=== PATIENT | male | born 1985 | race Caucasian/White ===

== ENCOUNTER 2017-03-27 10:20 | Emergency (ER) | payer MEDICAID ==
[2017-03-27 10:37] VITALS: RESP 16; TEMP 98.4; O2SAT 97
[2017-03-27 10:46] VITALS: BP 117/59; PULSE 7
[2017-03-27 10:47] VITALS: BMI 25.7
--- NOTE | 2017-03-27 11:41 | ED PDOC ---
Lower Extremity Pain/Injury Time Seen by Provider: 03/27/17 10:48 Chief Complaint (Nursing): Lower Extremity Problem/Injury Chief Complaint (Provider): knee pain Additional Complaint(s): 32 yo male, no PMH, presents into ER with c/o rt. knee pain since Tuesday. states he stepped off the sidewalk wrong and felt pain and "twisted his knee." No pop or crack noted. as per pt. pain is worse with ambulation. No analgesics taken thus far. Past Medical History Reviewed: Historical Data, Nursing Documentation, Vital Signs Vital Signs: Last Vital Signs Temp 98.4 F 03/27/17 10:46 Pulse 7 L 03/27/17 10:46 Resp 16 03/27/17 10:46 BP 117/59 L 03/27/17 10:46 Pulse Ox 97 03/27/17 10:46 - Medical History PMH: No Chronic Diseases - Surgical History Surgical History: Appendectomy - Family History Family History: States: No Known Family Hx - Living Arrangements Living Arrangements: With Friends/Others - Social History Current smoker - smoking cessation education provided: No Alcohol: Social Drugs: Denies - Home Medications Home Medications: Ambulatory Orders Medication Instructions Recorded Ibuprofen [Motrin] 600 mg PO Q6 #20 tab 03/27/17 - Allergies Allergies/Adverse Reactions: Allergies Allergy/AdvReac Type Severity Reaction Status Date / Time No Known Allergies Allergy Verified 03/27/17 11:04 Review of Systems ROS Statement: Except As Marked, All Systems Reviewed And Found Negative Musculoskeletal: Positive for: Leg Pain Physical Exam - Reviewed Nursing Documentation Reviewed: Yes Vital Signs Reviewed: Yes - Physical Exam Appears: Positive for: Well, Non-toxic, No Acute Distress Head Exam: Positive for: ATRAUMATIC, NORMAL INSPECTION, NORMOCEPHALIC Skin: Positive for: Normal Color, Warm, DRY Eye Exam: Positive for: EOMI, Normal appearance, PERRL ENT: Positive for: Normal ENT Inspection Neck: Positive for: Normal, Painless ROM Cardiovascular/Chest: Positive for: Regular Rate, Rhythm Respiratory: Positive for: CNT, Normal Breath Sounds Gastrointestinal/Abdominal: Positive for: Normal Exam, Bowel Sounds, Soft Back: Positive for: Normal Inspection Extremity: Positive for: Normal ROM, Tenderness (over patella and medial and lateral aspects of knee), Swelling (mild suprapatellar infusion). Negative for : Deformity Neurologic/Psych: Positive for: Alert, Oriented - ECG O2 Sat by Pulse Oximetry: 97 Medical Decision Making Medical Decision Making: Medicated with Motrin PO XR: NAD, as read by FERNIE blanchard advised. Ortho referral administered Pt placed in knee immobilizer and instructed in crutch training Disposition - Clinical Impression Clinical Impression: Knee injury - Patient ED Disposition Is Patient to be Admitted: No - Disposition Referrals: Live Swain MD [Medical Doctor] - Disposition: Routine/Home Disposition Time: 11:15 Condition: STABLE Prescriptions: Ibuprofen [Motrin] 600 mg PO Q6 #20 tab Instructions: Knee Pain (ED), RICE Therapy (ED), Knee Immobilizer (ED) Forms: [employer] (Lux[place]ish) - POA Present On Arrival: Falls Or Trauma
--- NOTE | 2017-03-27 13:22 | RAD ---
PROCEDURE: Right Knee Radiographs. HISTORY: pain after fall COMPARISON: None. FINDINGS: BONES: Normal. No fracture. JOINTS: Normal. No osteoarthritis. JOINT EFFUSION: None. OTHER FINDINGS: None. IMPRESSION: Normal radiographs of the right knee.
== END 2017-03-27 13:17 | disposition home or self-care (01) ==
LOC: MERGE 10:20 → H.ER 10:20
DX: S89.91XA Unspecified injury of right lower leg, initial encounter (principal); X50.9XXA Other and unspecified overexertion or strenuous movements or postures, initial encounter; Y92.89 Other specified places as the place of occurrence of the external cause

== ENCOUNTER 2017-05-10 14:23 | Emergency (ER) | payer MEDICAID ==
[2017-05-10 14:23] VITALS: BMI 25.7
[2017-05-10 14:46] VITALS: BP 105/64; PULSE 74; RESP 18; O2SAT 100
--- NOTE | 2017-05-10 16:15 | ED PDOC ---
History of Present Illness History of Present Illness: Kevin Villarreal is a 32 year old male with a past medical history of chronic sinus issues, who is presenting to the ER with complaints of productive cough associated with mild nasal congestion, onset 1 week ago. Patient states that he has a sore throat, worse when coughing and has yellow and clear sputum. He reports that he took night cough medicine with mild relief, but feels like his symptoms are getting worse. Patient reports fatigue and malaise, but denies any hemoptysis, body aches, fevers, chills, chest pain, shortness of breath, and leg swelling. He also denies any sick contacts or recent travel. Patient offers no other medical complaints at this time. PMD: none provided HPI: Influenza Time Seen by Provider: 05/10/17 15:35 Chief Complaint: Cough, Cold, Congestion Chief Complaint (Provider): cough, congestion History Per: Patient Exam Limitations: no limitations Have you had recent travel within the past 21 days to any of: No Onset/Duration Of Symptoms: Days (x7) Symptoms include: sore throat, cough, nasal congestion. denies: fever, bodyaches, chest pain, difficulty breathing Sick Contacts (Context): None Past Medical History Reviewed: Historical Data, Nursing Documentation, Vital Signs Vital Signs: Last Vital Signs Temp 98.6 F 05/10/17 14:42 Pulse 74 05/10/17 14:42 Resp 18 05/10/17 14:42 BP 105/64 05/10/17 14:42 Pulse Ox 100 05/10/17 14:42 - Medical History PMH: Denies: Diabetes, Hepatitis, HIV, HTN, Seizures, Sexually Transmitted Disease Other PMH: chronic sinus issues - Surgical History Surgical History: Appendectomy - Family History Family History: States: No Known Family Hx - Social History Current smoker - smoking cessation education provided: No Alcohol: None Drugs: Denies - Home Medications Home Medications: Ambulatory Orders Medication Instructions Recorded Gabapentin [Neurontin] 300 mg PO TID #90 cap 12/21/16 traZODone [Desyrel] 100 mg PO HS #30 tab 12/21/16 Ibuprofen [Motrin] 600 mg PO Q6 #20 tab 03/27/17 Ibuprofen [Motrin Tab] 600 mg PO Q8 PRN #60 tab 05/10/17 Promethazine HCl/Codeine 10 ml PO Q6 PRN #120 ml 05/10/17 [Prometh-Codein 6.25-10 mg/5 ml] - Allergies Allergies/Adverse Reactions: Allergies Allergy/AdvReac Type Severity Reaction Status Date / Time No Known Allergies Allergy Verified 12/15/16 11:58 Review of Systems ROS Statement: Except As Marked, All Systems Reviewed And Found Negative Constitutional: Positive for: Malaise, Other ((+) fatigue, (-) body aches). Negative for: Fever, Chills ENT: Positive for: Nose Congestion (mild), Throat Pain Cardiovascular: Negative for: Chest Pain Respiratory: Positive for: Cough, Sputum (yellow and clear). Negative for: Shortness of Breath, Hemoptysis Musculoskeletal: Negative for: Other (leg swelling) Physical Exam - Reviewed Nursing Documentation Reviewed: Yes Vital Signs Reviewed: Yes - Physical Exam Appears: Positive for: No Acute Distress (tired appearing) Medical Decision Making Medical Decision Making: Time: 15:55 Impression: Cough Differentials (including but not limited to): Flu, Pneumonia, Bronchitis, Upper Respiratory Infection Initial Plan: --Chest X-Ray --Influenza A B Accession No. 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 TECHNIQUE: Chest PA and lateral FINDINGS: LUNGS: No active pulmonary disease. PLEURA: No significant pleural effusion identified. No pneumothorax apparent. CARDIOVASCULAR: Normal. OSSEOUS STRUCTURES: No significant abnormalities. VISUALIZED UPPER ABDOMEN: Normal. OTHER FINDINGS: None. IMPRESSION: No acute cardiopulmonary disease appreciated. 17:30 Patient's reports were positive for Influenza. Diagnosis and labs were discussed with patient. Upon provider reevaluation patient is feeling better, is medically stable, and requires no further treatment in the ED at this time. Patient will be discharged home with instructions to rest and take fluids, while observing flu precautions. Counseling was provided and all questions were answered regarding diagnosis. There is agreement to discharge plan. Return if symptoms persist or worsen. Scribe Attestation: Documented by Jannet Bee acting as a scribe for Radha Sampson MD. Scribe Attestation: All medical record entries made by the Scribe were at my direction and personally dictated by me. I have reviewed the chart and agree that the record accurately reflects my personal performance of the history, physical exam, medical decision making, and the department course for this patient. I have also personally directed, reviewed, and agree with the discharge instructions and disposition. - ECG O2 Sat by Pulse Oximetry: 100 (RA) Pulse Ox Interpretation: Normal Disposition - Clinical Impression Clinical Impression: Influenza - Disposition Referrals: [facility] [place] [Outside] (FOLLOW UP WITH YOUR DOCTOR OR CLINIC IN 48 HOURS FOR REEVALUATION) Condition: STABLE Additional Instructions: DRINK PLENTY OF HYDRATING FLUIDS AND REST. Prescriptions: Ibuprofen [Motrin Tab] 600 mg PO Q8 PRN #60 tab PRN Reason: PAIN OR FEVER Promethazine HCl/Codeine [Prometh-Codein 6.25-10 mg/5 ml] 10 ml PO Q6 PRN #120 ml PRN Reason: SEVERE COUGH ONLY Instructions: Flu, Adult (DC) Forms: [facility] ED School/Work Excuse
--- NOTE | 2017-05-10 16:26 | RAD ---
HISTORY: cough fatigue COMPARISON: No prior. TECHNIQUE: Chest PA and lateral FINDINGS: LUNGS: No active pulmonary disease. PLEURA: No significant pleural effusion identified. No pneumothorax apparent. CARDIOVASCULAR: Normal. OSSEOUS STRUCTURES: No significant abnormalities. VISUALIZED UPPER ABDOMEN: Normal. OTHER FINDINGS: None. IMPRESSION: No acute cardiopulmonary disease appreciated.
[2017-05-10 16:36] VITALS: TEMP 98.1
== END 2017-05-10 17:44 | disposition home or self-care (01) ==
LOC: H.ER 14:23
DX: J11.1 Influenza due to unidentified influenza virus with other respiratory manifestations (principal)

== ENCOUNTER 2017-05-16 11:28 | Observation (INO) | payer MEDICAID ==
[2017-05-16 11:28] VITALS: BMI 25.7
[2017-05-16] MEDS ORDERED: Albuterol-Ipratrop 3 mg / 0.5 (3 ml) UD INH STA (12:08)
[2017-05-16] MEDS ORDERED: Sodium Chloride 0.9% 1,000 ML IV STA ×2 (12:08→13:47)
--- NOTE | 2017-05-16 12:09 | ED PDOC ---
HPI: SOB/CHF/COPD Time Seen by Provider: 05/16/17 12:07 Chief Complaint (Nursing): Shortness Of Breath Chief Complaint (Provider): cough, SOB History Per: Patient Additional Complaint(s): 32-year-old male with no past medical history presents to emergency department with persistent cough and shortness of breath 2 weeks. Patient was seen last week and tested positive for flu B. He was sent home with codeine cough syrup and ibuprofen but presents today with persistent symptoms. Patient states he can't take a big deep breath without having chest pain. He also complains of persistent fever and chills. Patient denies any nausea or vomiting. He states the cough is now productive of yellow and green sputum. No recent travel. PMD: none Past Medical History Reviewed: Historical Data, Nursing Documentation, Vital Signs Vital Signs: Last Vital Signs Temp 98 F 05/16/17 18:22 Pulse 76 05/16/17 18:22 Resp 18 05/16/17 18:22 BP 118/71 05/16/17 18:22 Pulse Ox 100 05/16/17 18:22 - Medical History PMH: No Chronic Diseases - Surgical History Surgical History: Appendectomy - Family History Family History: States: No Known Family Hx - Living Arrangements Living Arrangements: With Friends/Others - Social History Current smoker - smoking cessation education provided: No Alcohol: None Drugs: Denies - Home Medications Home Medications: Ambulatory Orders Medication Instructions Recorded Ibuprofen [Motrin Tab] 600 mg PO Q8 PRN #60 tab 05/10/17 - Allergies Allergies/Adverse Reactions: Allergies Allergy/AdvReac Type Severity Reaction Status Date / Time No Known Allergies Allergy Verified 05/16/17 11:56 Curb-65 Severity Score - CURB-65 Severity Score Confusion: No Bun >19mg/dl (>7mmol/L): No Respiratory Rate greater than/equal to 30: No Systolic BP <90 or Diastolic BP less than/equal 60mmHg: No Age >64: No Curb-65 Score: 0 Percentage 30-day mortality: 0.6% Wells Criteria for PE - Wells Criteria for Pulmonary Embolism Clinical Signs and Symptoms of DVT: No P.E is #1 Diagnosis, or Equally Likely: No Heart Rate >100: No Immobilization at least 3 days;Surgery previous 4 weeks: No Previous, objectively diagnosed PE or DVT: No Hemoptysis: No Malignancy w/treatment within 6 months, or palliative: No Total Score: 0 Review of Systems ROS Statement: Except As Marked, All Systems Reviewed And Found Negative Constitutional: Positive for: Fever (subjective), Chills, Weakness, Other (body aches) Cardiovascular: Positive for: Chest Pain (due to cough) Respiratory: Positive for: Cough, Shortness of Breath, SOB with Exertion, Sputum (yellow and green), Wheezing. Negative for: Hemoptysis Gastrointestinal: Negative for: Nausea, Vomiting Neurological: Negative for: Headache, Dizziness Physical Exam - Reviewed Nursing Documentation Reviewed: Yes Vital Signs Reviewed: Yes - Physical Exam Appears: Positive for: Well, Non-toxic, No Acute Distress Skin: Negative for: Rash Eye Exam: Positive for: Normal appearance Cardiovascular/Chest: Positive for: Regular Rate, Rhythm Respiratory: Positive for: Decreased Breath Sounds, Wheezing. Negative for: Rales, Rhonchi, Respiratory Distress Gastrointestinal/Abdominal: Positive for: Soft. Negative for: Tenderness, Distended, Guarding, Rebound Back: Negative for: L CVA Tenderness, R CVA Tenderness Neurologic/Psych: Positive for: Alert, Oriented - Laboratory Results Result Diagrams: 05/16/17 13:12 05/16/17 13:12 - ECG Interpretation Of ECG: NSR 72 bpm, no acute changes, reviewed by PA and ED attending O2 Sat by Pulse Oximetry: 96 Pulse Ox Interpretation: Normal - Other Rad CXR X-Ray: Interpreted by Me, Viewed By Me X-Ray Interpretation: no acute finding Nebulizer Treatments/Peak Flow - Duonebs Number of Bronchodilator Doses given?: 3 (duoneb) - Pre/Post Peak Flow Pre Treatment Peak Flow: 250 Post treatment Peak Flow: 300 - Steroid Treatment Steroid: IV (solumedrol 125 mg) - Clinical Response Clinical Response: Unchanged Medical Decision Making Medical Decision Makin32 year old with SOB and cough Plan: CBC CMP Trop D-dimer IVF Duoneb x 3 IV solumedrol 125 mg CXR D-dimer is elevated, CT chest ordered. CT: FINDINGS: PULMONARY ARTERIES: The visualized pulmonary trunk, right and left main, lobar and segmental branches appear relatively well opacified with no definitive filling defects seen to suggest acute central pulmonary embolus. The the subsegmental branches and the distal branches poorly seen on this exam. The pulmonary trunk ranges up to approximately 3.46 cm in diameter ; rule out underlying pulmonary arterial hypertension. AORTA: Ascending thoracic aorta measures approximately 2.8 cm and descending thoracic aorta measures approximately 1.9 cm. LUNGS: Mild on passive/dependent type atelectasis both posterior lower lung zones. PLEURAL SPACES: Unremarkable. No effusion or pneumothorax. HEART: Heart size mildly enlarged. No significant pericardial effusion. LYMPH NODES: There appears to be small to medium-sized sub carinal and a few small prevascular lymph nodes nonspecific. . There are also a few small nonspecific mediastinal lymph nodes. Central airways are midline and patent. No large central endoluminal lesions are identified. There is a small hiatal hernia with wall thickening of the distal esophagus likely due to protrusion gastric mucosa. BONES, CHEST WALL: The osseous structures appear intact. No focal on compression fractures no retropulsed fragments. OTHER FINDINGS: Spleen appears mildly enlarged measuring approximately 13.5 cm in greatest AP dimension. IMPRESSION: Somewhat limited study demonstrating no definitive evidence of acute central pulmonary embolus. Prominent pulmonary trunk; rule out underlying pulmonary arterial hypertension. Small to medium-sized the sub carinal lymph node felt be present. Mild splenomegaly. Patient is aware of diagnostic testing results. He states he still feels short of breath despite meds given. Patient still coughing excessively. Case was discussed with medicine behavior interventionist, Dr. Manrique, patient will be admitted. IV Zithromax and Rocephin ordered. PO cough medicine with codeine ordered. Patient is aware of and agrees with admission. Disposition - Clinical Impression Clinical Impression: Shortness of breath - Patient ED Disposition Is Patient to be Admitted: Yes - Disposition Disposition Time: 18:18 Condition: FAIR Forms: [employer] (Senegalese) - Pt Status Changed To: Hospital Disposition Of: Observation - POA Present On Arrival: None Results - Lab Results Lab Results: 05/16/17 05/16/17 05/16/17 17:40 13:12 13:12 WBC RBC Hgb Hct MCV MCH MCHC RDW Plt Count MPV Neut % (Auto) Lymph % (Auto) [place] % (Auto) Eos % (Auto) Baso % (Auto) Neut # (Auto) Lymph # (Auto) [place] # (Auto) Eos # (Auto) Baso # (Auto) D-Dimer, Quantitative 646 H Sodium 146 Potassium 3.7 Chloride 103 Carbon Dioxide 30 Anion Gap 17 BUN 11 Creatinine 0.7 L Est GFR ( Amer) > 60 Est GFR (Non-Af Amer) > 60 Random Glucose 98 Calcium 9.0 Total Bilirubin 0.3 AST 27 ALT 51 Alkaline Phosphatase 65 Troponin I < 0.0120 NT-Pro-B Natriuret Pep 70.4 Total Protein 7.2 Albumin 3.7 Globulin 3.5 Albumin/Globulin Ratio 1.1 Urine Opiates Screen Negative Urine Methadone Screen Negative Ur Barbiturates Screen Negative Ur Phencyclidine Scrn Negative Ur Amphetamines Screen Negative U Benzodiazepines Scrn Negative U Oth Cocaine Metabols Negative U Cannabinoids Screen Positive H 05/16/17 13:12 WBC 8.5 RBC 4.14 L Hgb 13.5 Hct 39.6 MCV 95.7 H MCH 32.7 H MCHC 34.1 RDW 12.8 Plt Count 314 MPV 8.0 Neut % (Auto) 48.8 L Lymph % (Auto) 31.8 [place] % (Auto) 13.3 H Eos % (Auto) 5.6 H Baso % (Auto) 0.5 Neut # (Auto) 4.1 Lymph # (Auto) 2.7 [place] # (Auto) 1.1 H Eos # (Auto) 0.5 Baso # (Auto) 0.0 D-Dimer, Quantitative Sodium Potassium Chloride Carbon Dioxide Anion Gap BUN Creatinine Est GFR ( Amer) Est GFR (Non-Af Amer) Random Glucose Calcium Total Bilirubin AST ALT Alkaline Phosphatase Troponin I NT-Pro-B Natriuret Pep Total Protein Albumin Globulin Albumin/Globulin Ratio Urine Opiates Screen Urine Methadone Screen Ur Barbiturates Screen Ur Phencyclidine Scrn Ur Amphetamines Screen U Benzodiazepines Scrn U Oth Cocaine Metabols U Cannabinoids Screen
[2017-05-16] MEDS ORDERED: Albuterol-Ipratrop 3 mg / 0.5 (3 ml) UD ONE (12:24)
--- NOTE | 2017-05-16 13:06 | RAD ---
HISTORY: SOB COMPARISON: Chest radiographs 05/10/2017. TECHNIQUE: Chest PA and lateral FINDINGS: LUNGS: No active pulmonary disease. PLEURA: No significant pleural effusion identified. No pneumothorax apparent. CARDIOVASCULAR: Normal. OSSEOUS STRUCTURES: No significant abnormalities. VISUALIZED UPPER ABDOMEN: Normal. OTHER FINDINGS: None. IMPRESSION: No interval acute cardiopulmonary disease appreciated.
[2017-05-16 13:28] LABS: ALB/GLOB RATIO 1.1 (1.0-2.1); ALBUMIN 3.7 g/dL (3.5-5.0); ALT/SGPT 51 U/L (21-72); AST/SGOT 27 U/L (17-59); BLOOD UREA NITROGEN 11 mg/dl (9-20); GFR AFRICAN-AMERICAN > 60; GFR NON-AFRICAN AMERICAN > 60
[2017-05-16 13:58] LABS: BASO % 0.5 % (0.0-2.0); EOS # 0.5 K/uL (0.0-0.7); EOS % 5.6 % (0.0-4.0); HEMOGLOBIN 13.5 g/dL (12.0-18.0); LYMPH # 2.7 K/uL (1.0-4.3); LYMPH % 31.8 % (20.0-40.0); MEAN CELL VOLUME 95.7 fl (80.0-94.0); MEAN CORPUSCULAR HEMOGLOBIN 32.7 pg (27.0-31.0); MEAN CORPUSCULAR HGB CONC 34.1 g/dL (33.0-37.0); MONO # 1.1 K/uL (0.0-0.8); MONO % 13.3 % (0.0-10.0); NEUT # 4.1 K/uL (1.8-7.0); NEUT % 48.8 % (50.0-75.0); NRBC % 0.1 % (0.0-0.0); RBC 4.14 Mil/uL (4.40-5.90); RED CELL DISTRIBUTION WIDTH 12.8 % (11.5-14.5); WHITE BLOOD COUNT 8.5 K/uL (4.8-10.8)
[2017-05-16 15:09] LABS: B-TYPE NATRIURETIC PEPTIDE 70.4 pg/ml (0-450)
[2017-05-16] MEDS ORDERED: Iodixanol 320 MG/ML 100 ML BOTTLE IV ONE ×2 (15:26→15:55)
[2017-05-16] MEDS ORDERED: Sodium Chloride 0.9% 100 ML ONE (15:26)
--- NOTE | 2017-05-16 18:04 | CT ---
PROCEDURE: CT Chest with contrast (Pulmonary Angiogram) HISTORY: Chest pain. Shortness of breath COMPARISON: Study available correlation made with prior chest radiograph obtained earlier same day. TECHNIQUE: Contiguous helical/ computed tomography images were obtained of the chest in the pulmonary arterial phase of enhancement. Coronal and sagittal reformatted images were created and reviewed. Intravenous contrast dose: 90 cc Visipaque 320 contrast material. Radiation dose: Total exam DLP = 405.4 mGy-cm. This CT exam was performed using one or more of the following dose reduction techniques: Automated exposure control, adjustment of the mA and/or kV according to patient size, and/or use of iterative reconstruction technique. Transaxial. FINDINGS: PULMONARY ARTERIES: The visualized pulmonary trunk, right and left main, lobar and segmental branches appear relatively well opacified with no definitive filling defects seen to suggest acute central pulmonary embolus. The the subsegmental branches and the distal branches poorly seen on this exam. The pulmonary trunk ranges up to approximately 3.46 cm in diameter ; rule out underlying pulmonary arterial hypertension. . AORTA: Ascending thoracic aorta measures approximately 2.8 cm and descending thoracic aorta measures approximately 1.9 cm. . LUNGS: Mild on passive/dependent type atelectasis both posterior lower lung zones. PLEURAL SPACES: Unremarkable. No effusion or pneumothorax. . HEART: Heart size mildly enlarged. No significant pericardial effusion. LYMPH NODES: There appears to be small to medium-sized sub carinal and a few small prevascular lymph nodes nonspecific. . There are also a few small nonspecific mediastinal lymph nodes. Central airways are midline and patent. No large central endoluminal lesions are identified. There is a small hiatal hernia with wall thickening of the distal esophagus likely due to protrusion gastric mucosa. BONES, CHEST WALL: The osseous structures appear intact. No focal on compression fractures no retropulsed fragments OTHER FINDINGS: Spleen appears mildly enlarged measuring approximately 13.5 cm in greatest AP dimension. IMPRESSION: Somewhat limited study demonstrating no definitive evidence of acute central pulmonary embolus. Prominent pulmonary trunk; rule out underlying pulmonary arterial hypertension. Small to medium-sized the sub carinal lymph node felt be present. Mild splenomegaly.
[2017-05-16] MEDS ORDERED: Azithromycin 500 MG in Sodium Chloride 0.9% 250 ML IVPB STA (18:13)
[2017-05-16 18:24] LABS: BARBITURATES, UR NEGATIVE (NEGATIVE); BENZODIAZEPINES, UR NEGATIVE (NEGATIVE); OPIATES, UR NEGATIVE (NEGATIVE); PHENCYCLIDINE, UR NEGATIVE (NEGATIVE)
[2017-05-16] MEDS ORDERED: cefTRIAXone (Rocephin) 1 gm Inj ONE (18:25)
[2017-05-16] MEDS ORDERED: guaiFENesin-Codeine 100-10mg/5ml Syrup (5 ml) UD PO STA (19:07)
[2017-05-16] MEDS ORDERED: Promethazine/Cod 6.25mg-10mg/5ml Syr UD ONE (20:46)
[2017-05-16] MEDS ORDERED: guaiFENesin-Codeine 100-10mg/5ml Syrup (5 ml) UD ONE (20:47)
[2017-05-16] MEDS ORDERED: Albuterol-Ipratrop 3 mg / 0.5 (3 ml) UD INH PRN (23:47)
[2017-05-17] MEDS ORDERED: guaiFENesin-Codeine 100-10mg/5ml Syrup (5 ml) UD PO PRN (02:01)
[2017-05-17] MEDS ORDERED: Azithromycin 500 MG in Sodium Chloride 0.9% 250 ML IVPB SCH (09:00)
[2017-05-17] MEDS ORDERED: Promethazine 12.5 mg/10 ml Syrup PO SCH (09:00)
[2017-05-17] MEDS ORDERED: Promethazine DM 12.5 mg-30 mg/10 ml Syrup PO PRN (10:27)
--- NOTE | 2017-05-17 11:35 | CP.PCM.DIS ---
<Mingo Avilez - Last Filed: 05/17/17 11:30> Provider - Provider Date of Admission: 05/16/17 19:00 Attending physician: Mk Manrique MD Time Spent in preparation of Discharge (in minutes): 15 Diagnosis - Discharge Diagnosis (1) Reactive airway disease Status: Acute (2) Nasopharyngitis acute Status: Acute Hospital Course - Lab Results Lab Results: Most Recent Lab Values WBC 8.5 K/uL (4.8-10.8) 05/16/17 13:12 RBC 4.14 Mil/uL (4.40-5.90) L 05/16/17 13:12 Hgb 13.5 g/dL (12.0-18.0) 05/16/17 13:12 Hct 39.6 % (35.0-51.0) 05/16/17 13:12 MCV 95.7 fl (80.0-94.0) H 05/16/17 13:12 MCH 32.7 pg (27.0-31.0) H 05/16/17 13:12 MCHC 34.1 g/dL (33.0-37.0) 05/16/17 13:12 RDW 12.8 % (11.5-14.5) 05/16/17 13:12 Plt Count 314 K/uL (130-400) 05/16/17 13:12 MPV 8.0 fl (7.2-11.7) 05/16/17 13:12 Neut % (Auto) 48.8 % (50.0-75.0) L 05/16/17 13:12 Lymph % (Auto) 31.8 % (20.0-40.0) 05/16/17 13:12 Chase % (Auto) 13.3 % (0.0-10.0) H 05/16/17 13:12 Eos % (Auto) 5.6 % (0.0-4.0) H 05/16/17 13:12 Baso % (Auto) 0.5 % (0.0-2.0) 05/16/17 13:12 Neut # (Auto) 4.1 K/uL (1.8-7.0) 05/16/17 13:12 Lymph # (Auto) 2.7 K/uL (1.0-4.3) 05/16/17 13:12 Chase # (Auto) 1.1 K/uL (0.0-0.8) H 05/16/17 13:12 Eos # (Auto) 0.5 K/uL (0.0-0.7) 05/16/17 13:12 Baso # (Auto) 0.0 K/uL (0.0-0.2) 05/16/17 13:12 D-Dimer, Quantitative 646 ng/mlDDU (0-230) H 05/16/17 13:12 Sodium 146 mmol/l (132-148) 05/16/17 13:12 Potassium 3.7 MMOL/L (3.6-5.0) 05/16/17 13:12 Chloride 103 mmol/L (98-107) 05/16/17 13:12 Carbon Dioxide 30 mmol/L (22-30) 05/16/17 13:12 Anion Gap 17 (10-20) 05/16/17 13:12 BUN 11 mg/dl (9-20) 05/16/17 13:12 Creatinine 0.7 mg/dl (0.8-1.5) L 05/16/17 13:12 Est GFR ( Amer) > 60 05/16/17 13:12 Est GFR (Non-Af Amer) > 60 05/16/17 13:12 Random Glucose 98 mg/dL (75-110) 05/16/17 13:12 Calcium 9.0 mg/dL (8.4-10.2) 05/16/17 13:12 Total Bilirubin 0.3 mg/dl (0.2-1.3) 05/16/17 13:12 AST 27 U/L (17-59) 05/16/17 13:12 ALT 51 U/L (21-72) 05/16/17 13:12 Alkaline Phosphatase 65 U/L (38-126) 05/16/17 13:12 Troponin I < 0.0120 ng/mL (0.00-0.120) 05/16/17 13:12 NT-Pro-B Natriuret Pep 70.4 pg/ml (0-450) 05/16/17 13:12 Total Protein 7.2 G/DL (6.3-8.2) 05/16/17 13:12 Albumin 3.7 g/dL (3.5-5.0) 05/16/17 13:12 Globulin 3.5 gm/dL (2.2-3.9) 05/16/17 13:12 Albumin/Globulin Ratio 1.1 (1.0-2.1) 05/16/17 13:12 Urine Opiates Screen Negative (NEGATIVE) 05/16/17 17:40 Urine Methadone Screen Negative (NEGATIVE) 05/16/17 17:40 Ur Barbiturates Screen Negative (NEGATIVE) 05/16/17 17:40 Ur Phencyclidine Scrn Negative (NEGATIVE) 05/16/17 17:40 Ur Amphetamines Screen Negative (NEGATIVE) 05/16/17 17:40 U Benzodiazepines Scrn Negative (NEGATIVE) 05/16/17 17:40 U Oth Cocaine Metabols Negative (NEGATIVE) 05/16/17 17:40 U Cannabinoids Screen Positive (NEGATIVE) H 05/16/17 17:40 Influenza Typ A,B (EIA) Negative for flu a/b (NEGATIVE) 05/16/17 18:15 - Hospital Course Hospital Course: 32 y/o man w/ no pmh presented to Ed w/ dyspnea. Patient reported worsening shortness of breath for the past 2 weeks. Patient was on his way to his mother' s home when he began having worsened SOB. Patient seen and evaluated in ED. CBC and CMP were WNL. CXR showed no active pulmonary disease process. D-dimer was elevated and CT chest PE protocol was ordered, which showed no pulmonary embolism. Patient admitted to Tele for observation due to persistent cough and SOB. Patient feels better but still has persistent cough. Patient has no other complaints. The patient has been seen, examined, and deemed medically fit for discharge home. The patient will be discharged w/ singulair PO, zyrtec D PO, flonase spray, and atrovent spray. The patient is to follow up w/ PMD in 1 week. Discharge Exam - Head Exam Head Exam: ATRAUMATIC, NORMAL INSPECTION, NORMOCEPHALIC - Eye Exam Eye Exam: Normal appearance - ENT Exam ENT Exam: Mucous Membranes Moist - Neck Exam Neck exam: Full Rom - Respiratory Exam Respiratory Exam: Clear to PA & Lateral, NORMAL BREATHING PATTERN, UNREMARKABLE. absent: Accessory Muscle Use, Decreased Breath Sounds, Rales, Rhonchi, Wheezes, Respiratory Distress, Stridor - Cardiovascular Exam Cardiovascular Exam: REGULAR RHYTHM. absent: Tachycardia, Diastolic murmur, Systolic Murmur - GI/Abdominal Exam GI & Abdominal Exam: Normal Bowel Sounds, Soft. absent: Diminished Bowel Sounds , Distended, Tenderness - Extremities Exam Extremities exam: normal inspection - Neurological Exam Neurological exam: Alert, Oriented x3 - Skin Skin Exam: Dry, Intact, Normal Color, Warm Discharge Plan - Discharge Medications Prescriptions: Cetirizine HCl/Pseudoephedrine [Zyrtec-D Tablet] 1 each PO Q12 #60 tab.er.12h Montelukast [Singulair] 10 mg PO DAILY #30 tab Promethazine DM [Phenergan DM Syrup] 10 ml PO Q6 PRN #1 bottle PRN Reason: Cough - Follow Up Plan Condition: FAIR Disposition: HOME/ ROUTINE Instructions: Viral Upper Respiratory Infection, Adult (DC) Additional Instructions: follow up with pmd in 1 week I was present during evaluation and discussed with Dr Avilez re discharge plans. Mk Manrique M.D. Referrals: Mk Manrique MD [Staff Provider] - <Mk Manrique - Last Filed: 05/19/17 21:33> Provider - Provider Date of Admission: 05/16/17 19:00 Attending physician: Mk Manrique MD Diagnosis - Discharge Diagnosis (1) Reactive airway disease Status: Acute (2) Shortness of breath Status: Acute (3) Cannabis abuse Status: Acute Hospital Course - Lab Results Lab Results: Most Recent Lab Values WBC 8.5 K/uL (4.8-10.8) 05/16/17 13:12 RBC 4.14 Mil/uL (4.40-5.90) L 05/16/17 13:12 Hgb 13.5 g/dL (12.0-18.0) 05/16/17 13:12 Hct 39.6 % (35.0-51.0) 05/16/17 13:12 MCV 95.7 fl (80.0-94.0) H 05/16/17 13:12 MCH 32.7 pg (27.0-31.0) H 05/16/17 13:12 MCHC 34.1 g/dL (33.0-37.0) 05/16/17 13:12 RDW 12.8 % (11.5-14.5) 05/16/17 13:12 Plt Count 314 K/uL (130-400) 05/16/17 13:12 MPV 8.0 fl (7.2-11.7) 05/16/17 13:12 Neut % (Auto) 48.8 % (50.0-75.0) L 05/16/17 13:12 Lymph % (Auto) 31.8 % (20.0-40.0) 05/16/17 13:12 Chase % (Auto) 13.3 % (0.0-10.0) H 05/16/17 13:12 Eos % (Auto) 5.6 % (0.0-4.0) H 05/16/17 13:12 Baso % (Auto) 0.5 % (0.0-2.0) 05/16/17 13:12 Neut # (Auto) 4.1 K/uL (1.8-7.0) 05/16/17 13:12 Lymph # (Auto) 2.7 K/uL (1.0-4.3) 05/16/17 13:12 Chase # (Auto) 1.1 K/uL (0.0-0.8) H 05/16/17 13:12 Eos # (Auto) 0.5 K/uL (0.0-0.7) 05/16/17 13:12 Baso # (Auto) 0.0 K/uL (0.0-0.2) 05/16/17 13:12 D-Dimer, Quantitative 646 ng/mlDDU (0-230) H 05/16/17 13:12 Sodium 146 mmol/l (132-148) 05/16/17 13:12 Potassium 3.7 MMOL/L (3.6-5.0) 05/16/17 13:12 Chloride 103 mmol/L (98-107) 05/16/17 13:12 Carbon Dioxide 30 mmol/L (22-30) 05/16/17 13:12 Anion Gap 17 (10-20) 05/16/17 13:12 BUN 11 mg/dl (9-20) 05/16/17 13:12 Creatinine 0.7 mg/dl (0.8-1.5) L 05/16/17 13:12 Est GFR ( Amer) > 60 05/16/17 13:12 Est GFR (Non-Af Amer) > 60 05/16/17 13:12 Random Glucose 98 mg/dL (75-110) 05/16/17 13:12 Calcium 9.0 mg/dL (8.4-10.2) 05/16/17 13:12 Total Bilirubin 0.3 mg/dl (0.2-1.3) 05/16/17 13:12 AST 27 U/L (17-59) 05/16/17 13:12 ALT 51 U/L (21-72) 05/16/17 13:12 Alkaline Phosphatase 65 U/L (38-126) 05/16/17 13:12 Troponin I < 0.0120 ng/mL (0.00-0.120) 05/16/17 13:12 NT-Pro-B Natriuret Pep 70.4 pg/ml (0-450) 05/16/17 13:12 Total Protein 7.2 G/DL (6.3-8.2) 05/16/17 13:12 Albumin 3.7 g/dL (3.5-5.0) 05/16/17 13:12 Globulin 3.5 gm/dL (2.2-3.9) 05/16/17 13:12 Albumin/Globulin Ratio 1.1 (1.0-2.1) 05/16/17 13:12 Urine Opiates Screen Negative (NEGATIVE) 05/16/17 17:40 Urine Methadone Screen Negative (NEGATIVE) 05/16/17 17:40 Ur Barbiturates Screen Negative (NEGATIVE) 05/16/17 17:40 Ur Phencyclidine Scrn Negative (NEGATIVE) 05/16/17 17:40 Ur Amphetamines Screen Negative (NEGATIVE) 05/16/17 17:40 U Benzodiazepines Scrn Negative (NEGATIVE) 05/16/17 17:40 U Oth Cocaine Metabols Negative (NEGATIVE) 05/16/17 17:40 U Cannabinoids Screen Positive (NEGATIVE) H 05/16/17 17:40 Influenza Typ A,B (EIA) Negative for flu a/b (NEGATIVE) 05/16/17 18:15
[2017-05-17 15:50] VITALS: BP 115/68; PULSE 75; RESP 17; TEMP 98.7; O2SAT 99
--- NOTE | 2017-05-19 00:51 | CP.PCM.HP ---
History of Present Illness - History of Present Illness History of Present Illness: This is a 32 y/o male admitted for persistent cough and shortness of breath despite medications. patient was seen previously in another facility for SOB and cough and was started on medications including antibiotics and cough medications and steroid neb tx but to no avail hence sought Er eval and admitted for persistent SOB and cough. Present on Admission - Present on Admission Any Indicators Present on Admission: No History of DVT/PE: No History of Uncontrolled Diabetes: No Urinary Catheter: No Decubitus Ulcer Present: No Review of Systems - Respiratory Respiratory: Cough, Dyspnea, Chest Congestion Past Patient History - Past Medical History & Family History Past Medical History?: Yes - Past Social History Smoking Status: occasional - CARDIAC Hx Cardiac Disorders: No - PULMONARY Hx Respiratory Disorders: Yes Hx Asthma: Yes (childhood) Hx Tuberculosis: No - NEUROLOGICAL Hx Neurological Disorder: No Hx Seizures: No - HEENT Hx HEENT Problems: No - RENAL Hx Chronic Kidney Disease: No - ENDOCRINE/METABOLIC Hx Endocrine Disorders: No - HEMATOLOGICAL/ONCOLOGICAL Hx Blood Disorders: No Hx Human Immunodeficiency Virus (HIV): No - INTEGUMENTARY Hx Dermatological Problems: No - MUSCULOSKELETAL/RHEUMATOLOGICAL Hx Musculoskeletal Disorders: Yes Hx Falls: No Hx Herniated Disk: Yes (lumbar) Other/Comment: Left Ankle injury - GASTROINTESTINAL Hx Gastrointestinal Disorders: No - GENITOURINARY/GYNECOLOGICAL Hx Genitourinary Disorders: No Hx Sexually Transmitted Disorders: No - PSYCHIATRIC Hx Psychophysiologic Disorder: No Hx Substance Use: Yes (marijuana) - SURGICAL HISTORY Hx Surgeries: Yes Hx Appendectomy: Yes Other/Comment: epidural to lower back - ANESTHESIA Hx Anesthesia: Yes Hx Anesthesia Reactions: No Hx Malignant Hyperthermia: No Has any member of the family had a problem w/ anesthesia?: No Meds Home Medications: Home Medication List Medication Instructions Recorded Confirmed Type Cetirizine HCl/Pseudoephedrine 1 each PO Q12 #60 tab.er.12h 05/17/17 Rx [Zyrtec-D Tablet] Montelukast [Singulair] 10 mg PO DAILY #30 tab 05/17/17 Rx Promethazine DM [Phenergan DM 10 ml PO Q6 PRN #1 bottle 05/17/17 Rx Syrup] Allergies/Adverse Reactions: Allergies Allergy/AdvReac Type Severity Reaction Status Date / Time No Known Allergies Allergy Verified 05/16/17 11:56 Physical Exam - Head Exam Head Exam: NORMAL INSPECTION - Eye Exam Eye Exam: Normal appearance - ENT Exam ENT Exam: Mucous Membranes Moist - Respiratory Exam Respiratory Exam: Clear to Auscultation Bilateral - Cardiovascular Exam Cardiovascular Exam: REGULAR RHYTHM - GI/Abdominal Exam GI & Abdominal Exam: Normal Bowel Sounds Results - Vital Signs Recent Vital Signs: Last Vital Signs Temp 98.7 F 05/17/17 15:48 Pulse 75 05/17/17 15:48 Resp 17 05/17/17 15:48 BP 115/68 05/17/17 15:48 Pulse Ox 99 05/17/17 15:48 - Labs Result Diagrams: 05/16/17 13:12 05/16/17 13:12 Assessment & Plan (1) Reactive airway disease Status: Acute (2) Shortness of breath Status: Acute (3) Cannabis abuse Status: Acute - Assessment and Plan (Free Text) Plan: Con tmeds Cont tx neb tx Solumedrol
== END 2017-05-17 16:43 | disposition home or self-care (01) ==
LOC: H.ER 11:28 → H.ERHOLD 19:00 → H.TEL 21:36
PROVIDERS: ADMIT Family Medicine; ATTEND Family Medicine
DX: J45.909 Unspecified asthma, uncomplicated (principal); J00 Acute nasopharyngitis [common cold]; R16.1 Splenomegaly, not elsewhere classified; F12.90 Cannabis use, unspecified, uncomplicated
CPT/HCPCS: 71046; 71275; 80053; 80324; 80345; 80346; 80349; 80353; 80358; 80361; 83880; 83992; 84484; 85025; 85378; 87804; 96374; 99285; G0378; J0456; J0696; J2930; J7040; J7050; Q9967